=== PATIENT | female | born 1985 | race Caucasian/White ===

== ENCOUNTER 2017-12-16 08:53 | Emergency (ER) | payer BC | END 2017-12-16 10:40 | disposition home or self-care (01) | LOC: ER 08:53 | DX: S49.91XA Unspecified injury of right shoulder and upper arm, initial encounter (principal); F41.9 Anxiety disorder, unspecified; F32.9 Major depressive disorder, single episode, unspecified; F12.10 Cannabis abuse, uncomplicated; Z88.5 Allergy status to narcotic agent; W18.39XA Other fall on same level, initial encounter; Y93.72 Activity, wrestling; Y92.89 Other specified places as the place of occurrence of the external cause; Y99.8 Other external cause status | CPT/HCPCS: 73030; 99284 ==

== ENCOUNTER → 2018-01-21 | Outpatient (CLI) | payer BC | END | disposition home or self-care (01) | LOC: KCIC MRI 08:33 | DX: M25.511 Pain in right shoulder (principal); R60.0 Localized edema; Z91.81 History of falling | CPT/HCPCS: 73221 ==

== ENCOUNTER → 2019-02-27 | Outpatient (CLI) | payer BC ==
[2017-12-16 09:01] VITALS: BP 119/77
[~2019-02-27] MED LIST: ALBU2.5V8 INH; AZIT500T PO; HYDR-3164 PO; PRED20TA PO
--- NOTE | 2019-02-28 08:10 | PCVCIMAG ---
APPROVED REPORT Study performed: 02/27/2019 14:20:07 Exam: Stress Echocardiogram Indication: near syncope Patient Location: Echo lab Stress Nurse: Marissa Lyon RN Room #: 2 Status: routine Ht: 4 ft 9 in HR: 85 bpm BP: 114/70 mmHg Rhythm: NSR Medical History Medical History: Hyperlipidemia, near syncope Cardiac Risk Factors: Hyperlipidemia Previous Cardiac Procedures: none Pretest Chest Pain Characteristics: No chest pain Exercise History: Physically active Procedure The patient underwent an Exercise Stress Test using the [place] Protocol. Blood pressure, heart rate, and EKG were monitored. An Echocardiogram was performed by computer aided design technician in four stages in quad fashion. At peak stress, four selected images were obtained and placed side by side with resting images for comparison. Stress Test Details Stress Test: Exercise stress testing was performed using a [place] protocol. HR Resting HR: 885 bpmMax Heart Rate (APMHR): 185 bpm Max HR Achieved: 166 bpmTarget HR (85% APMHR): 166 bpm % of APMHR: 89 Recovery HR: 102 bpm HR response to stress: Normal HR response to stress BP Resting BP: 114/70 mmHg Max BP: 140/60 mmHg Recovery BP: 116/62 mmHg BP response to stress: Normal blood pressure response to stress. ECG Resting ECG: Sinus Rhythm Stress ECG: Sinus Rhythm ST Change: Non-ischemic Arrhythmia: rare PAC Recovery ECG: Sinus Rhythm Recovery ST Change: Non-ischemic Recovery Arrhythmia: None Clinical Reason for Termination: Maximal effort,dyspnea Stress Symptoms: dyspnea Exercise duration: 10 min 32 sec Highest Stage Achieved: Stage 4: 4.2 mph at 16% grade. Exercise capacity: 13.4 METs Overall Exercise Capacity for Age: Good Scale: Active Angina Score: None No complications. Stress ECG Conclusion The patient exercised according to the [place] protocol for 10:32 mins; achieving a work level of 13.4 METS. The resting heart rate of 85 bpm sarai to a maximum heart rate of 166 bpm. This value represent 89% of the maximal, age-predicted heart rate. The resting blood pressure of 114/70 mmHg, sarai to a maximum blood pressure of 140/60 mmHg. The exercise test was stopped due to dyspnea and fatigue. Pre-Stress Echo The resting Echocardiogram showed normal left ventricular contractility with an estimated Ejection Fraction of about 55-60%. Normal wall motion in all segments on baseline images. Post-Stress Echo The stress Echocardiogram showed normal left ventricular contractility with an estimated Ejection Fraction of about 65-70%. Normal augmentation of wall motion in all segments on post stress images. Clinical No clinical or ECG evidence for ischemia. Conclusion Clinical Response: Non-ischemic Exercise Capacity: Superior Stress ECG Response: Non-ischemic Stress Echo Images: Non-ischemic No clinical, EKG or echocardiographic evidence for ischemia. No echocardiographic evidence for exercise induced ischemia. Normal stress echocardiogram with maximal exercise stress. 1. low risk study No prior study available for comparison. <Conclusion> No clinical, EKG or echocardiographic evidence for ischemia. No echocardiographic evidence for exercise induced ischemia. Normal stress echocardiogram with maximal exercise stress. 1. low risk study
== END | disposition home or self-care (01) ==
LOC: PCVCIMAG 08:00
PROVIDERS: ATTEND Internal Medicine
DX: R55 Syncope and collapse (principal); E78.5 Hyperlipidemia, unspecified
CPT/HCPCS: 93325; 93351

== ENCOUNTER 2019-06-03 16:44 | Emergency (ER) | payer SELFPAY ==
[~2019-06-03] VITALS: Ht 144.8 cm; Wt 49.9 kg
[2019-06-03 17:32] LABS: BASO # 0.1 x10^3/uL (0.0-0.2); BASO % 1 % (0-3); EOS # 0.2 x10^3/uL (0.0-0.7); EOS % 3 % (0-3); HEMOGLOBIN 15.9 g/dL (12.0-15.5); LYMPH # 2.7 x10^3/uL (1.0-4.8); LYMPH % 34 % (24-48); MEAN CORPUSCULAR HEMOGLOBIN 35 pg (25-35); MEAN CORPUSCULAR HGB CONC 35 g/dL (31-37); MEAN CORPUSCULAR VOLUME 100 fL (79-100); MONO # 0.4 x10^3/uL (0.0-1.1); MONO % 5 % (0-9); NEUT # 4.5 x10^3/uL (1.8-7.7); NEUT % 57 % (31-73); PLATELET COUNT 312 x10^3/uL (140-400); RED BLOOD COUNT 4.59 x10^6/uL (3.50-5.40); RED CELL DISTRIBUTION WIDTH 12.4 % (11.5-14.5); WHITE BLOOD COUNT 7.9 x10^3/uL (4.0-11.0)
[2019-06-03 17:42] LABS: PARTIAL THROMBOPLASTIN TIME 25 SEC (24-38); PROTHROMBIN TIME PATIENT 11.7 SEC (11.7-14.0)
[2019-06-03] MEDS ORDERED: IV NORMAL SALINE 1000ML BAG 1,000 ML IV ONE (17:45)
--- NOTE | 2019-06-03 17:46 | PHYS DOC ---
Past Medical History Past Medical History: Anxiety, Depression (POLY SHARPE COMFORT STATION ATTENDANT) Past Surgical History: , Tonsillectomy (POLY SHARPE APRN) Alcohol Use: Occasionally Drug Use: None (POLY SHARPE APRN) Adult General Chief Complaint Chief Complaint: SHORTNESS OF BREATH [facility] HPI Patient is a 34 year old female, accompanied by her , who p resents to the ER with complaints of shortness of breath, epigastric and right upper quadrant abdominal pain that radiates through to her back, and nausea for the last 3 days. She states that she does not remember leaving work today and that the vision in both of her eyes is blurred at this time. At this time she denies any pain, states that she just feels numb all over. ROS Patient denies any fever, cough, vomiting, diarrhea, dysuria, dizziness, or headache. She reports medical history of anxiety and depression, she denies any chest pain, or palpitations. She denies any recent travel via car or airplane. She denies any swelling of her lower extremities, numbness, tingling, or incoordination. She denies any difficulty speaking. All other ROS is neg unless otherwise noted in HPI. 1850- Pt now reports that she has had horrible diarrhea x3 days, she denies any blood in her stools. Also complains of diffuse abdominal pain at this time. (POLY SHARPE APRN) Review of Systems Review of Systems See Above (POLY SHARPE APRN) Current Medications Current Medications Current Medications Medications (Trade) Dose Ordered Sig/Bianca Start Time Stop Time Status Last Admin Dose Admin Info (CONTRAST GIVEN -- Rx MONITORING) 1 each PRN DAILY PRN 06/03/19 19:15 06/03/19 21:10 DC Iohexol (Omnipaque 300 Mg/ml) 75 ml 1X ONCE 06/03/19 19:15 06/03/19 19:16 DC 06/03/19 19:33 75 ML Lorazepam (Ativan Inj) 1 mg 1X ONCE 06/03/19 17:45 06/03/19 17:46 DC 06/03/19 17:53 1 MG Ondansetron HCl (Zofran) 4 mg 1X ONCE 06/03/19 20:00 06/03/19 20:01 DC 06/03/19 19:58 4 MG Sodium Chloride 1,000 ml @ 1,000 mls/hr 1X ONCE 06/03/19 17:45 06/03/19 18:44 DC 06/03/19 17:53 1,000 MLS/HR (VIDHYA CEJA DO) Allergies Allergies Allergies Coded Allergies Type Severity Reaction Last Updated Verified codeine Allergy Intermediate Rash 10/31/15 Yes (VIDHYA CEJA DO) Physical Exam Physical Exam See Above Constitutional: Well developed, well nourished, anxious, non-toxic appearance. [] HENT: Normocephalic, atraumatic, bilateral external ears normal, oropharynx moist, no oral exudates, nose normal. [] Eyes: PERRLA, EOMI, conjunctiva normal, no discharge. [] Neck: Normal range of motion, no tenderness, supple, no stridor. [] Cardiovascular:Heart rate regular rhythm, no murmur [] Lungs & Thorax: Bilateral breath sounds clear to auscultation [] Abdomen: Bowel sounds normal, soft, epigastric and right upper quadrant tenderness to palpation, no rebound tenderness, no guarding, no masses, no pulsatile masses. [] Skin: Warm, dry, no erythema, no rash. [] Extremities: No cyanosis, no clubbing, ROM intact, no edema. [] Neurologic: Alert and oriented X 3, normal motor function, normal sensory function, no focal deficits noted. [] Psychologic: Affect anxious, judgement normal, mood normal. [] (POLY SHARPE APRN) Current Patient Data Vital Signs Vital Signs Date Time Temp Pulse Resp B/P (MAP) Pulse Ox O2 Delivery O2 Flow Rate FiO2 06/03/19 20:40 70 20 116/65 (82) 99 Room Air 06/03/19 16:45 97.8 97.8 (VIDHYA CEJA DO) Lab Values Laboratory Tests Test 06/03/19 17:03 06/03/19 17:30 06/03/19 17:40 White Blood Count 7.9 x10^3/uL (4.0-11.0) Red Blood Count 4.59 x10^6/uL (3.50-5.40) Hemoglobin 15.9 g/dL (12.0-15.5) H Hematocrit 46.0 % (36.0-47.0) Mean Corpuscular Volume 100 fL (79-100) Mean Corpuscular Hemoglobin 35 pg (25-35) Mean Corpuscular Hemoglobin Concent 35 g/dL (31-37) Red Cell Distribution Width 12.4 % (11.5-14.5) Platelet Count 312 x10^3/uL (140-400) Neutrophils (%) (Auto) 57 % (31-73) Lymphocytes (%) (Auto) 34 % (24-48) Monocytes (%) (Auto) 5 % (0-9) Eosinophils (%) (Auto) 3 % (0-3) Basophils (%) (Auto) 1 % (0-3) Neutrophils # (Auto) 4.5 x10^3/uL (1.8-7.7) Lymphocytes # (Auto) 2.7 x10^3/uL (1.0-4.8) Monocytes # (Auto) 0.4 x10^3/uL (0.0-1.1) Eosinophils # (Auto) 0.2 x10^3/uL (0.0-0.7) Basophils # (Auto) 0.1 x10^3/uL (0.0-0.2) Prothrombin Time 11.7 SEC (11.7-14.0) Prothrombin Time INR 0.9 (0.8-1.1) Activated Partial Thromboplast Time 25 SEC (24-38) D-Dimer (Sapna) < 0.27 ug/mlFEU Sodium Level 143 mmol/L (136-145) Potassium Level 3.6 mmol/L (3.5-5.1) Chloride Level 104 mmol/L (98-107) Carbon Dioxide Level 22 mmol/L (21-32) Anion Gap 17 (6-14) H Blood Urea Nitrogen 9 mg/dL (7-20) Creatinine 1.0 mg/dL (0.6-1.0) Estimated GFR (Cockcroft-Gault) 62.7 BUN/Creatinine Ratio 9 (6-20) Glucose Level 109 mg/dL (70-99) H Calcium Level 9.6 mg/dL (8.5-10.1) Magnesium Level 2.0 mg/dL (1.8-2.4) Total Bilirubin 0.2 mg/dL (0.2-1.0) Aspartate Amino Transferase (AST) 14 U/L (15-37) L Alanine Aminotransferase (ALT) 19 U/L (14-59) Alkaline Phosphatase 70 U/L (46-116) Troponin I Quantitative < 0.017 ng/mL (0.000-0.055) KG-Sor-F-Type Natriuretic Peptide 102 pg/mL (0-124) Total Protein 7.9 g/dL (6.4-8.2) Albumin 4.4 g/dL (3.4-5.0) Albumin/Globulin Ratio 1.3 (1.0-1.7) Lipase 137 U/L (73-393) Urine Collection Type Void Urine Color Yellow Urine Clarity Clear Urine pH 7.0 Urine Specific Butterfield 1.010 Urine Protein Negative mg/dL (NEG-TRACE) Urine Glucose (UA) Negative mg/dL (NEG) Urine Ketones (Stick) Negative mg/dL (NEG) Urine Blood Negative (NEG) Urine Nitrite Negative (NEG) Urine Bilirubin Negative (NEG) Urine Urobilinogen Dipstick 0.2 mg/dL (0.2 mg/dL) Urine Leukocyte Esterase Negative (NEG) Urine RBC 0 /HPF (0-2) Urine WBC 1-4 /HPF (0-4) Urine Squamous Epithelial Cells Few /LPF Urine Bacteria Few /HPF (0-FEW) Urine Opiates Screen Neg (NEG) Urine Methadone Screen Neg (NEG) Urine Barbiturates Neg (NEG) Urine Phencyclidine Screen Neg (NEG) Urine Amphetamine/Methamphetamine Neg (NEG) Urine Benzodiazepines Screen Neg (NEG) Urine Cocaine Screen Neg (NEG) Urine Cannabinoids Screen Neg (NEG) Urine Ethyl Alcohol Neg (NEG) POC Urine HCG, Qualitative Hcg negative (Negative) Laboratory Tests 06/03/19 17:03 Laboratory Tests 06/03/19 17:03 (VIDHYA CEJA DO) EKG EKG [] (POLY SHARPE APRN) Radiology/Procedures Radiology/Procedures 1651- SR, rate 90 with QRS(T) abnormality consider anteroseptal damage, NO STEMI read by Dr. Truong [ PROCEDURE: CT ABD PELV W/ IV CONTRST ONLY PQRS Compliance Statement: One or more of the following individualized dose reduction techniques were utilized for this examination: 1. Automated exposure control 2. Adjustment of the mA and/or kV according to patient size 3. Use of iterative reconstruction technique CT abdomen/pelvis with contrast 06/03/2019 6:57 PM INDICATION: Diarrhea for 3 days. Abdominal pain. COMPARISON: None available TECHNIQUE: Multiple axial CT images of the abdomen and pelvis were obtained after the intravenous administration of 75 mL Omnipaque 300. Coronal and sagittal reformats are provided. FINDINGS: Lung bases are clear. Heart size is within normal limits. Liver, spleen, bilateral adrenal glands, and pancreas are normal in appearance. Gallbladder is contracted limiting evaluation. The abdominal aorta is normal in course and caliber. There are no pathologically enlarged lymph nodes in the abdomen and pelvis. There is no abdominal free fluid. There is no free intraperitoneal air. Small and large bowel are normal in caliber. There is no evidence for bowel obstruction. There are no pericolonic inflammatory changes. A normal, nondilated appendix is visualized without adjacent inflammatory changes. Evaluation of the left colon and sigmoid colon is limited secondary to underdistention. The kidneys enhance symmetrically. There is no suspicious renal mass. There is no hydronephrosis. There are no suspected calculi within the kidneys, ureters or urinary bladder. Urinary bladder is within normal limits given degree of distention. Tampon is present. Uterus is normal in appearance by CT. Follicular changes are identified in the adnexa bilaterally. No significant free fluid within the pelvis. Patchy sclerotic density in the right iliac bone measures 20 x 15 mm and is nonspecific, most likely representing a bone island. IMPRESSION: No acute abnormality is identified in abdomen or pelvis. Patchy sclerotic density in the right iliac bone may represent bone island measuring 20 x 15 mm.] CXR- No acute findings read by Dr. Ceja (POLY SHARPE APRN) Course & Med Decision Making Course & Med Decision Making Pertinent Labs and Imaging studies reviewed. (See chart for details) dx: diarrhea, nausea, short of breath ddx: PE, ACS, STEMI, pneumonia, SBO, diverticulitis, colitis, cholecystitis, CVA Pt was presented to the ER complaining of shortness of breath, nausea, and diarrhea. She was given 1L of NS, 1 mg of ativan, and 2 doses of 4 mg of zofran IV. CBC was unremarkable; PT, PTT, INR WNL; CMP unremarkable, troponin <0.017, lipase normal; UA unremarkable, UDS negative CXR no acute findings CT abd/pel no acute findings. Visual acuities were not concerning, pt denies a headache, no neuro deficits. NO CT of head ordered as no concerns of CVA, pt reports recent frequent problems with memory for several months that she is supposed to see a neurologist for. Prescription written for zofran. Pt discouraged from taking immodium. Increase clear fluids, advance diet as tolerated. Follow up with neurologist as planned for further evaluation, recommend that patient stop driving until she is evaluated by neurologist due to memory concerns. Patient verbalized an understanding of home care, medications, follow-up, and return to ED instructions and was in agreement with the plan of care. [] (POLY SHARPE APRN) Dragon Disclaimer Dragon Disclaimer This electronic medical record was generated, in whole or in part, using a voice recognition dictation system. (POLY SHARPE APRN) Departure Departure Impression: Primary Impression: Diarrhea in adult patient Additional Impressions: Nausea Shortness of breath Disposition: HOME, SELF-CARE Condition: STABLE Referrals: GALEN DUVAL MD (PCP) Patient Instructions: Diarrhea, [id number], Diet for Diarrhea, Adult, Shortness of Breath, [id number] Additional Instructions: Fill the prescription and use as directed. Take your home medications as prescribed. Follow up with your primary care doctor in 1-2 days. Return to the ER if symptoms worsen. Scripts Ondansetron (ONDANSETRON ODT) 4 Mg Tab.rapdis 1 TAB PO PRN Q6-8HRS PRN for NAUSEA/VOMITING, #16 TAB 0 Refills Prov: POLY SHARPE APRN 06/03/19 Attending Signature Attending Signature I have reviewed the PA/WOOD FURNITURE ASSEMBLER's note and plan of care. I was available for consultation as needed during the patient's visit in the emergency department. I agree with the clinical impression, plan, and disposition. (VIDHYA CEJA DO) Problem Qualifiers POLY SHARPE APRN Jun 03, 2019 17:46 VIDHYA CEJA DO Jun 05, 2019 08:05
[2019-06-03] MEDS ORDERED: ONDANSETRON PF 4 MG/2 ML VIAL. ONE (17:50)
[2019-06-03 17:51] LABS: CALCIUM 9.6 mg/dL (8.5-10.1); D-DIMER < 0.27 ug/mlFEU (0.00-0.50); GFR 62.7; POTASSIUM 3.6 mmol/L (3.5-5.1)
[2019-06-03 17:54] LABS: BILIRUBIN,URINE NEGATIVE (NEG); CLARITY,URINE CLEAR; COLOR,URINE YELLOW; NITRITE,URINE NEGATIVE (NEG); PROTEIN,URINE NEGATIVE (NEG-TRACE); UROBILINOGEN,URINE 0.2 mg/dL (0.2 mg/dL)
[2019-06-03 17:57] LABS: ALBUMIN 4.4 g/dL (3.4-5.0); ALBUMIN/GLOBULIN RATIO 1.3 (1.0-1.7); TOTAL BILIRUBIN 0.2 mg/dL (0.2-1.0); TOTAL PROTEIN 7.9 g/dL (6.4-8.2)
[2019-06-03] MEDS ORDERED: ONDANSETRON PF 4 MG/2 ML VIAL. IV ONE ×2 (18:00→20:00)
[2019-06-03 18:02] LABS: BARBITURATES NEG (NEG); BENZODIAZEPINES NEG (NEG); CANNABINOIDS NEG (NEG); COCAINE NEG (NEG); METHADONE NEG (NEG); OPIATES NEG (NEG); PHENCYCLIDINE NEG (NEG)
[2019-06-03 18:04] LABS: AMPHETAMINE/METHAMPHETAMINE NEG (NEG)
[2019-06-03 18:06] LABS: BACTERIA,URINE FEW /HPF (0-FEW); RBC,URINE 0 /HPF (0-2); SQUAMOUS EPITHELIAL CELL,UR FEW /LPF
--- NOTE | 2019-06-03 18:39 | EKG ---
[facility] [address] [place] [address] Test Date: 2019-06-03 Test Time: 16:51:55 Pat Name: HUGH LUCIA Department: Room: Gender: F Gardening Manager: : [id number] Requested By: POLY SHARPE Order Number: [id number] Reading MD: Measurements Intervals Hudson Rate: 90 P: 47 WI: 134 QRS: 62 QRSD: 72 T: 42 QT: 330 QTc: 407 Interpretive Statements SINUS RHYTHM QRS(T) CONTOUR ABNORMALITY CONSIDER ANTEROSEPTAL MYOCARDIAL DAMAGE POSSIBLY ABNORMAL ECG RI6.01 Unconfirmed report No previous ECG available for comparison
[2019-06-03] MEDS ORDERED: CONTRAST GIVEN. MC PRN (19:15)
[2019-06-03] MEDS ORDERED: IOHEXOL 300 MG/ML 100ML VIAL. IV ONE (19:15)
--- NOTE | 2019-06-03 20:16 | RAD ---
PQRS Compliance Statement: One or more of the following individualized dose reduction techniques were utilized for this examination: 1. Automated exposure control 2. Adjustment of the mA and/or kV according to patient size 3. Use of iterative reconstruction technique CT abdomen/pelvis with contrast 06/03/2019 6:57 PM INDICATION: Diarrhea for 3 days. Abdominal pain. COMPARISON: None available TECHNIQUE: Multiple axial CT images of the abdomen and pelvis were obtained after the intravenous administration of 75 mL Omnipaque 300. Coronal and sagittal reformats are provided. FINDINGS: Lung bases are clear. Heart size is within normal limits. Liver, spleen, bilateral adrenal glands, and pancreas are normal in appearance. Gallbladder is contracted limiting evaluation. The abdominal aorta is normal in course and caliber. There are no pathologically enlarged lymph nodes in the abdomen and pelvis. There is no abdominal free fluid. There is no free intraperitoneal air. Small and large bowel are normal in caliber. There is no evidence for bowel obstruction. There are no pericolonic inflammatory changes. A normal, nondilated appendix is visualized without adjacent inflammatory changes. Evaluation of the left colon and sigmoid colon is limited secondary to underdistention. The kidneys enhance symmetrically. There is no suspicious renal mass. There is no hydronephrosis. There are no suspected calculi within the kidneys, ureters or urinary bladder. Urinary bladder is within normal limits given degree of distention. Tampon is present. Uterus is normal in appearance by CT. Follicular changes are identified in the adnexa bilaterally. No significant free fluid within the pelvis. Patchy sclerotic density in the right iliac bone measures 20 x 15 mm and is nonspecific, most likely representing a bone island. IMPRESSION: No acute abnormality is identified in abdomen or pelvis. Patchy sclerotic density in the right iliac bone may represent bone island measuring 20 x 15 mm. Electronically signed by: Sabiha Vergara MD (06/03/2019 8:13 PM) [facility]
[2019-06-03 20:40] VITALS: BP 116/65
[2019-06-03] MEDS ORDERED: ONDA4TAB12 PO (20:49)
--- NOTE | 2019-06-04 07:45 | RAD ---
CHEST PA LATERAL History: Shortness of breath Comparison: None. Findings: The cardiomediastinal silhouette is normal. Pulmonary vasculature is normal. The lungs are clear. No pleural effusion or pneumothorax is seen. There is no acute bone abnormality. IMPRESSION: No acute cardiopulmonary process. Electronically signed by: Ryan Elizondo MD (06/04/2019 7:41 AM) [facility]
== END 2019-06-03 21:05 | disposition home or self-care (01) ==
LOC: ER 16:44
DX: R19.7 Diarrhea, unspecified (principal); R11.0 Nausea; R06.02 Shortness of breath; R10.11 Right upper quadrant pain; R10.13 Epigastric pain; F41.9 Anxiety disorder, unspecified; F32.9 Major depressive disorder, single episode, unspecified; Z98.890 Other specified postprocedural states; Z90.89 Acquired absence of other organs; Z88.5 Allergy status to narcotic agent
CPT/HCPCS: 36415; 71046; 74177; 80053; 80307; 81001; 81025; 83690; 83735; 83880; 84484; 85025; 85379; 85610; 85730; 93005; 96361; 96374; 96375; 96376; 99285; J2060; J2405; J7030; Q9967

== ENCOUNTER 2021-12-13 19:40 | Emergency (ER) | payer BC ==
[~2021-12-13] VITALS: Ht 160 cm; Wt 59.1 kg
[~2021-12-13 19:40] MED LIST changes: +ONDA4TAB12 PO
[2021-12-13] MEDS ORDERED: ONDANSETRON PF 4 MG/2 ML VIAL. IVP ONE (20:15)
[2021-12-13] MEDS ORDERED: fentaNYL PF VIAL 100 MCG/2 ML VIAL IVP ONE (20:15)
[2021-12-13] MEDS ORDERED: IV NORMAL SALINE 1000ML BAG 1,000 ML IV ONE (20:15)
[2021-12-13 20:18] LABS: BASO # 0.1 x10^3/uL (0.0-0.2); BASO % 1 % (0-3); EOS # 0.2 x10^3/uL (0.0-0.7); EOS % 4 % (0-3); HEMATOCRIT 43.3 % (36.0-47.0); HEMOGLOBIN 14.7 g/dL (12.0-15.5); LYMPH # 1.9 x10^3/uL (1.0-4.8); LYMPH % 35 % (24-48); MEAN CORPUSCULAR HEMOGLOBIN 34 pg (25-35); MEAN CORPUSCULAR HGB CONC 34 g/dL (31-37); MEAN CORPUSCULAR VOLUME 99 fL (79-100); MONO # 0.7 x10^3/uL (0.0-1.1); MONO % 12 % (0-9); NEUT # 2.6 x10^3/uL (1.8-7.7); NEUT % 48 % (31-73); PLATELET COUNT 265 x10^3/uL (140-400); RED BLOOD COUNT 4.36 x10^6/uL (3.50-5.40); RED CELL DISTRIBUTION WIDTH 12.8 % (11.5-14.5); WHITE BLOOD COUNT 5.5 x10^3/uL (4.0-11.0)
[2021-12-13 20:39] LABS: CALCIUM 8.5 mg/dL (8.5-10.1); CREATININE 0.7 mg/dL (0.6-1.0); GFR 93.6; POTASSIUM 3.7 mmol/L (3.5-5.1)
[2021-12-13 20:49] LABS: ALBUMIN 3.6 g/dL (3.4-5.0); ALBUMIN/GLOBULIN RATIO 0.9 (1.0-1.7); TOTAL BILIRUBIN 0.2 mg/dL (0.2-1.0); TOTAL PROTEIN 7.4 g/dL (6.4-8.2)
[2021-12-13 21:44] LABS: BILIRUBIN,URINE NEGATIVE (NEG); CLARITY,URINE CLOUDY; COLOR,URINE YELLOW; NITRITE,URINE NEGATIVE (NEG); PH,URINE 6.5 (<5.0-8.0); PROTEIN,URINE NEGATIVE (NEG-TRACE)
[2021-12-13] MEDS ORDERED: CONTRAST GIVEN. MC PRN (21:45)
[2021-12-13 21:51] LABS: BACTERIA,URINE MANY /HPF (0-FEW)
[2021-12-13 21:52] LABS: RBC,URINE 0 /HPF (0-2); WBC,URINE OCC /HPF (0-4)
[2021-12-13] MEDS ORDERED: IOHEXOL 300 MG/ML 100ML VIAL. IV ONE (22:00)
--- NOTE | 2021-12-13 22:47 | RAD ---
CT ABDOMEN+PELVIS W History: Right lower quadrant pain. Comparison: 06/03/2019. Technique: CT of the abdomen and pelvis with intravenous contrast Findings: The lung bases are clear. There is a subcentimeter hypodensity in the posterior right hepatic dome, u nchanged from comparison likely benign cyst. The gallbladder, pancreas, spleen, adrenal glands, and k idneys are unremarkable. The bladder is partially decompressed and unremarkable. Uterus is within nor mal limits. Right adnexal cystic versus tubular lesion measures 5.1 x 3.5 x 3.7 cm. Attenuation is gr eater than simple fluid. The left ovary is within normal limits. The stomach is unremarkable. Normal small bowel. Normal gas-filled appendix. The colon is within norm al limits without wall thickening or pericolonic inflammatory changes. No abdominal pelvic adenopathy . The vasculature is within normal limits. No free air or free fluid. Osseous structures are unremark able. Redemonstrated sclerotic right iliac lesion may represent bone island. Impression: 1. Cystic appearing right adnexal lesion with attenuation greater than simple fluid measuring 5.1 cm greatest diameter, possibly hemorrhagic cyst. Recommend pelvic ultrasound for further evaluation. 2. Normal appendix. ------ Exposure: One or more of the following individualized dose reduction techniques were utilized for thi s examination: 1. Automated exposure control 2. Adjustment of the mA and/or kV according to patient size 3. Use of iterative reconstruction technique. Electronically signed by: Franklyn Brown MD (12/13/2021 10:44 PM) [facility]
--- NOTE | 2021-12-13 23:34 | PHYS DOC ---
Past Medical History Past Medical History: Anxiety, Depression Past Surgical History: , Tonsillectomy Smoking Status: Current Every Day Smoker Alcohol Use: Occasionally Drug Use: None General Adult EDM: Chief Complaint: ABDOMINAL PAIN HPI: HPI: Patient is a 36 year old female with history of anxiety, depression, presenting today complaining of 9 out of 10 stabbing intermittent right lower quadrant abdominal pain radiating to the left lower quadrant, symptoms began 3 days ago. Patient is also complaining of diarrhea for 2 days. Patient states symptoms are worse when she is sitting up. Denies anything specifically relieving her symptoms. Review of Systems: Review of Systems: Constitutional: Denies fever or chills. [] Eyes: Denies change in visual acuity. [] HENT: Denies nasal congestion or sore throat. [] Respiratory: Denies cough or shortness of breath. [] Cardiovascular: Denies chest pain or edema. [] GI: Reports right lower quadrant pain radiating to the left lower quadrant with diarrhea, denies nausea, vomiting, bloody stools : Denies dysuria. [] Musculoskeletal: Denies back pain or joint pain. [] Integument: Denies rash. [] Neurologic: Denies headache, focal weakness or sensory changes. [] Psychiatric: Denies depression or anxiety. [] Heart Score: C/O Chest Pain: N/A Risk Factors: Risk Factors: DM, Current or recent (<one month) smoker, HTN, HLP, family history of CAD, obesity. Risk Scores: Score 0 - 3: 2.5% MACE over next 6 weeks - Discharge Home Score 4 - 6: 20.3% MACE over next 6 weeks - Admit for Clinical Observation Score 7 - 10: 72.7% MACE over next 6 weeks - Early Invasive Strategies Current Medications: Current Medications Medications (Trade) Dose Ordered Sig/Bianca Start Time Stop Time Status Last Admin Dose Admin Fentanyl Citrate (Fentanyl 2ml Vial) 50 mcg 1X ONCE 12/13/21 20:15 12/13/21 20:16 DC 12/13/21 20:22 50 MCG Info (CONTRAST GIVEN -- Rx MONITORING) 1 each PRN DAILY PRN 12/13/21 21:45 12/15/21 21:44 Iohexol (Omnipaque 300 Mg/ml) 75 ml 1X ONCE 12/13/21 22:00 12/13/21 22:01 DC 12/13/21 21:45 75 ML Ondansetron HCl (Zofran) 4 mg 1X ONCE 12/13/21 20:15 12/13/21 20:16 DC 12/13/21 20:22 4 MG Sodium Chloride 1,000 ml @ 1,000 mls/hr 1X ONCE 12/13/21 20:15 12/13/21 21:14 DC 12/13/21 20:22 1,000 MLS/HR Allergies: Allergies: Allergies Coded Allergies Type Severity Reaction Last Updated Verified codeine Allergy Intermediate Rash 10/31/15 Yes Physical Exam: PE: Constitutional: Well developed, well nourished, no acute distress, non-toxic appearance. [] HENT: Normocephalic, atraumatic, bilateral external ears normal, oropharynx mois t, no oral exudates, nose normal. [] Eyes: PERRLA, EOMI, conjunctiva normal, no discharge. [] Neck: Normal range of motion, no tenderness, supple, no stridor. [] Cardiovascular:Heart rate regular rhythm, no murmur [] Lungs & Thorax: Bilateral breath sounds clear to auscultation [] Abdomen: Bowel sounds normal, soft, tenderness on palpation of the right lower quadrant with negative psoas sign, negative obturator sign, negative Rovsing sign, no guarding, no masses, no pulsatile masses. [] Skin: Warm, dry, no erythema, no rash. [] Back: No tenderness, no CVA tenderness. [] Extremities: No tenderness, no cyanosis, no clubbing, ROM intact, no edema. [] Neurologic: Alert and oriented X 3, normal motor function, normal sensory function, no focal deficits noted. [] Psychologic: Affect normal, judgement normal, mood normal. [] Current Patient Data: Labs: Laboratory Tests Test 12/13/21 20:07 12/13/21 21:24 12/13/21 21:31 White Blood Count 5.5 x10^3/uL (4.0-11.0) Red Blood Count 4.36 x10^6/uL (3.50-5.40) Hemoglobin 14.7 g/dL (12.0-15.5) Hematocrit 43.3 % (36.0-47.0) Mean Corpuscular Volume 99 fL (79-100) Mean Corpuscular Hemoglobin 34 pg (25-35) Mean Corpuscular Hemoglobin Concent 34 g/dL (31-37) Red Cell Distribution Width 12.8 % (11.5-14.5) Platelet Count 265 x10^3/uL (140-400) Neutrophils (%) (Auto) 48 % (31-73) Lymphocytes (%) (Auto) 35 % (24-48) Monocytes (%) (Auto) 12 % (0-9) H Eosinophils (%) (Auto) 4 % (0-3) H Basophils (%) (Auto) 1 % (0-3) Neutrophils # (Auto) 2.6 x10^3/uL (1.8-7.7) Lymphocytes # (Auto) 1.9 x10^3/uL (1.0-4.8) Monocytes # (Auto) 0.7 x10^3/uL (0.0-1.1) Eosinophils # (Auto) 0.2 x10^3/uL (0.0-0.7) Basophils # (Auto) 0.1 x10^3/uL (0.0-0.2) Sodium Level 139 mmol/L (136-145) Potassium Level 3.7 mmol/L (3.5-5.1) Chloride Level 104 mmol/L (98-107) Carbon Dioxide Level 26 mmol/L (21-32) Anion Gap 9 (6-14) Blood Urea Nitrogen 8 mg/dL (7-20) Creatinine 0.7 mg/dL (0.6-1.0) Estimated GFR (Cockcroft-Gault) 93.6 BUN/Creatinine Ratio 11 (6-20) Glucose Level 105 mg/dL (70-99) H Calcium Level 8.5 mg/dL (8.5-10.1) Total Bilirubin 0.2 mg/dL (0.2-1.0) Aspartate Amino Transferase (AST) 14 U/L (15-37) L Alanine Aminotransferase (ALT) 25 U/L (14-59) Alkaline Phosphatase 75 U/L (46-116) Total Protein 7.4 g/dL (6.4-8.2) Albumin 3.6 g/dL (3.4-5.0) Albumin/Globulin Ratio 0.9 (1.0-1.7) L Lipase 84 U/L (73-393) Urine Collection Type Unknown Urine Color Yellow Urine Clarity Cloudy Urine pH 6.5 (<5.0-8.0) Urine Specific [place] 1.020 (1.000-1.030) Urine Protein Negative mg/dL (NEG-TRACE) Urine Glucose (UA) Negative mg/dL (NEG) Urine Ketones (Stick) Negative mg/dL (NEG) Urine Blood Negative (NEG) Urine Nitrite Negative (NEG) Urine Bilirubin Negative (NEG) Urine Urobilinogen Dipstick 1.0 mg/dL (0.2 mg/dL) Urine Leukocyte Esterase Negative (NEG) Urine RBC 0 /HPF (0-2) Urine WBC Occ /HPF (0-4) Urine Squamous Epithelial Cells Many /LPF Urine Bacteria Many /HPF (0-FEW) Urine Mucus Mod /LPF POC Urine HCG, Qualitative Hcg negative (Negative) Laboratory Tests 12/13/21 20:07 Laboratory Tests 12/13/21 20:07 Vital Signs: Vital Signs Date Time Temp Pulse Resp B/P (MAP) Pulse Ox O2 Delivery O2 Flow Rate FiO2 12/13/21 20:22 17 12/13/21 19:45 98.3 89 184/92 (122) 100 Room Air 98.3 EKG: EKG: [] Radiology/Procedures: Radiology/Procedures: []PROCEDURE: CT ABD PELV W/ IV CONTRST ONLY CT ABDOMEN+PELVIS W History: Right lower quadrant pain. Comparison: 06/03/2019. Technique: CT of the abdomen and pelvis with intravenous contrast Findings: The lung bases are clear. There is a subcentimeter hypodensity in the posterior right hepatic dome, unchanged from comparison likely benign cyst. The gallbladder, pancreas, spleen, adrenal glands, and kidneys are unremarkable. The bladder is partially decompressed and unremarkable. Uterus is within normal limits. Right adnexal cystic versus tubular lesion measures 5.1 x 3.5 x 3.7 cm. Attenuation is greater than simple fluid. The left ovary is within normal limits. The stomach is unremarkable. Normal small bowel. Normal gas-filled appendix. The colon is within normal limits without wall thickening or pericolonic i nflammatory changes. No abdominal pelvic adenopathy. The vasculature is within normal limits. No free air or free fluid. Osseous structures are unremarkable. Redemonstrated sclerotic right iliac lesion may represent bone island. Impression: 1. Cystic appearing right adnexal lesion with attenuation greater than simple fluid measuring 5.1 cm greatest diameter, possibly hemorrhagic cyst. Recommend pelvic ultrasound for further evaluation. 2. Normal appendix. ------ Exposure: One or more of the following individualized dose reduction techniques were utilized for this examination: 1. Automated exposure control 2. Adjustment of the mA and/or kV according to patient size 3. Use of iterative reconstruction technique. Electronically signed by: Franklyn Styles MD (12/13/2021 10:44 PM) [facility] DICTATED and SIGNED BY: FRANKLYN STYLES MD DATE: 12/13/21 [id number] PROCEDURE: PELVIS COMPLETE EXAMINATION: US PELVIS COMPLETE, 12/13/2021 11:33 PM CLINICAL INDICATION: Left lower quadrant pain, possible hemorrhagic cyst on CT TECHNIQUE: Grayscale, color and spectral Doppler ultrasound images of the pelvis via transabdominal and transvaginal approach. COMPARISON: CT abdomen pelvis 12/13/2021 FINDINGS: The uterus measures 8.9 x 5.4 x 4.8 cm. The endometrial stripe measures 5 mm in thickness. No myometrial mass. The right ovary measures 5.9 x 2.9 x 3.0 cm. The left ovary measures 2.5 x 2.0 x 1.7 cm. There is a mildly heterogeneous hypoechoic cystic lesion in the right ovary measuring 5 cm, likely hemorrhagic cyst. No internal vascularity. There is intact ovarian blood flow bilaterally. No adnexal mass or free fluid. IMPRESSION: 5 cm hypoechoic cystic lesion in the right ovary, likely a hemorrhagic cyst. A follow-up ultrasound could be obtained in 8-12 weeks to ensure stability. Electronically signed by: Zabrina Baxter MD (12/14/2021 12:45 AM) [id number] DICTATED and SIGNED BY: ZABRINA BAXTER MD DATE: 12/14/21 [id number] 0 Course & Med Decision Making: Course & Med Decision Making Pertinent Labs and Imaging studies reviewed. (See chart for details) This is a 34-year-old female patient presented to the ED today complaining of right lower quadrant abdominal pain radiating to the left lower quadrant with diarrhea, symptoms began 3 days ago. Negative urine hCG, CBC, CMP, UA-negative for any acute findings. CT of the abdomen and pelvis was done to rule out appendicitis, appendix is normal, cystic appearing right adnexal lesion with attenuation greater than simple fluid measuring 5.1 cm greatest diameter, possibly hemorrhagic cyst. Recommend pelvic ultrasound for further evaluation. Pelvic ultrasound noted for 5 cm right hemorrhagic cyst. Patient's pain is well controlled, discharged home. Provided OB for follow-up. Heating pad recommended to the pelvic region. Dragon Disclaimer: Dragon Disclaimer: This electronic medical record was generated, in whole or in part, using a voice recognition dictation system. Departure Departure Impression: Primary Impression: Hemorrhagic cyst of right ovary Disposition: HOME / SELF CARE / HOMELESS Condition: STABLE Referrals: GALEN DUVAL MD (PCP) VIDHYA DUVALL MD follow up in the next 7 days Patient Instructions: Ovarian Cyst, [id number] Additional Instructions: You have right hemorrhagic cyst. Please follow-up with the provided [employer] in the next 7 days. Consider using a heating pad to your lower abdomen. Take the prescribed pain medicine as needed for pain. Come back to the ED at any point symptoms worsen. Do not do any strenuous activities like exercise, running, or heavy lifting. Scripts Hydrocodone Bit/Acetaminophen (HYDROCODONE-APAP 5-325 ) 1 Tab Tablet 1 TAB PO PRN Q6HRS PRN for PAIN, #14 TAB 0 Refills Prov: BECKY MCDERMOTT APRN 12/14/21 Naproxen (NAPROXEN) 500 Mg Tablet. 1 TAB PO BID, #20 TAB 2 Refills Prov: BECKY MCDERMOTT APRN 12/14/21 BECKY MCDERMOTT APRN Dec 13, 2021 23:34
[2021-12-14] MEDS ORDERED: HYDR-2761 PO (00:31)
[2021-12-14] MEDS ORDERED: NAPR500T8 PO (00:31)
[2021-12-14 00:40] VITALS: BP 107/52
--- NOTE | 2021-12-14 00:47 | RAD ---
EXAMINATION: US PELVIS COMPLETE, 12/13/2021 11:33 PM CLINICAL INDICATION: Left lower quadrant pain, possible hemorrhagic cyst on CT TECHNIQUE: Grayscale, color and spectral Doppler ultrasound images of the pelvis via transabdominal a nd transvaginal approach. COMPARISON: CT abdomen pelvis 12/13/2021 FINDINGS: The uterus measures 8.9 x 5.4 x 4.8 cm. The endometrial stripe measures 5 mm in thickness. No myometr ial mass. The right ovary measures 5.9 x 2.9 x 3.0 cm. The left ovary measures 2.5 x 2.0 x 1.7 cm. There is a m ildly heterogeneous hypoechoic cystic lesion in the right ovary measuring 5 cm, likely hemorrhagic cy st. No internal vascularity. There is intact ovarian blood flow bilaterally. No adnexal mass or free fluid. IMPRESSION: 5 cm hypoechoic cystic lesion in the right ovary, likely a hemorrhagic cyst. A follow-up ultrasound could be obtained in 8-12 weeks to ensure stability. Electronically signed by: Zabrina Baxter MD (12/14/2021 12:45 AM) [id number]
[2021-12-14] MEDS ORDERED: fentaNYL PF VIAL 100 MCG/2 ML VIAL IVP ONE (01:30)
== END 2021-12-14 01:00 | disposition home or self-care (01) ==
LOC: ER 19:40
DX: N83.201 Unspecified ovarian cyst, right side (principal); F17.200 Nicotine dependence, unspecified, uncomplicated; Z88.5 Allergy status to narcotic agent
CPT/HCPCS: 36415; 74177; 76856; 80053; 81001; 81025; 83690; 85025; 87086; 96361; 96374; 96375; 99285; J2405; J3010; J7030; Q9967